=== PATIENT | male | born 1965 | race Caucasian/White ===

== ENCOUNTER 2025-06-15 10:00 | Inpatient (IN) | payer OTHER ==
[~2025-06-15] VITALS: Ht 183.5 cm; Wt 65.0 kg
[2025-06-15 11:11] LABS: PLATELET COUNT (AUTO) 288 K/uL (150-450); RED BLOOD CELL COUNT(AUTO) 4.27 MIL/uL (4.50-5.90); RED CELL DISTRIBUTION WIDTH 14.8 % (11.5-14.5); WHITE BLOOD COUNT (AUTO) 9.8 K/uL (4.5-11.0)
[2025-06-15 11:19] LABS: CALCIUM, TOTAL 9.3 mg/dL (8.8-10.5); CREATININE 0.75 mg/dL (0.60-1.30); GLOMERULAR FILTR. RATE CALC > 60 mL/min (>60); GLUCOSE,RANDOM 111 mg/dL (70-110); SODIUM SERUM 136 mmol/L (136-145); UREA NITROGEN, BLOOD 15 mg/dL (7-18)
[2025-06-15 11:22] LABS: ASPARTATE AMINOTRANSFERASE 43 U/L (15-37); TOTAL PROTEIN, SERUM 7.1 g/dL (6.4-8.2)
[2025-06-15] MEDS: ACETAMINOPHEN 1000 MG/ISO-OSM 100 ML IV ONE (12:41)
[2025-06-15] MEDS ORDERED: ACET-2247 PO (13:58)
[2025-06-15] MEDS ORDERED: SERT-158 PO (13:58)
[2025-06-15] MEDS ORDERED: DULO60CA73 PO (13:58)
[2025-06-15] MEDS ORDERED: PRED-549 PO (13:58)
[2025-06-15] MEDS ORDERED: ATOR10TA PO (13:58)
[2025-06-15] MEDS: LIDOCAINE 5% TRANSDERMAL PATCH TD SCH (15:45)
[2025-06-15] MEDS ORDERED: ONDANSETRON HCL 4 MG/2 ML VIAL IVP PRN (15:45)
[2025-06-15] MEDS: HEPARIN SODIUM,PORCINE 5,000 UNITS/ML VIAL SQ SCH (16:00)
[2025-06-15 17:18] VITALS: BP 153/82; PULSE 81; RESP 18; TEMP 98.4; O2SAT 100
[2025-06-15] MEDS: DEXTROSE 5%-LACTATED RINGERS 1,000 ML IV ONE (18:16)
[2025-06-15] MEDS: ACETAMINOPHEN 325 MG TABLET PO PRN (18:47)
[2025-06-15 20:20] VITALS: BP_SYST 102; BP_SYST 138; BP_DIAS 72; BP_DIAS 95; PULSE 92; PULSE 94; RESP 17; TEMP 97.5; TEMP 98.1; O2SAT 100; O2SAT 98
[2025-06-15] MEDS: DOCUSATE SODIUM 100 MG CAPSULE PO SCH (21:00)
[2025-06-15] MEDS: -LIDODERM PATCH NOTE- MISC SCH (21:22)
[2025-06-16 06:00] VITALS: BP 111/87; PULSE 76; RESP 18; TEMP 99.1; O2SAT 99
[2025-06-16 06:33] LABS: PLATELET COUNT (AUTO) 233 K/uL (150-450); RED BLOOD CELL COUNT(AUTO) 3.73 MIL/uL (4.50-5.90); RED CELL DISTRIBUTION WIDTH 14.8 % (11.5-14.5); WHITE BLOOD COUNT (AUTO) 6.5 K/uL (4.5-11.0)
[2025-06-16 06:53] LABS: CALCIUM, TOTAL 8.6 mg/dL (8.8-10.5); CREATININE 0.68 mg/dL (0.60-1.30); GLOMERULAR FILTR. RATE CALC > 60 mL/min (>60); GLUCOSE,RANDOM 112 mg/dL (70-110); SODIUM SERUM 135 mmol/L (136-145); UREA NITROGEN, BLOOD 11 mg/dL (7-18)
[2025-06-16 08:12] VITALS: BP 147/80; PULSE 94; RESP 18; TEMP 98.2; O2SAT 100
[2025-06-16] MEDS: DULoxetine HCL 60 MG CAPSULE PO SCH (09:23)
[2025-06-16] MEDS: SERTRALINE HCL 50 MG TABLET PO SCH (09:23)
[2025-06-16] MEDS: ATORVASTATIN CALCIUM 10 MG TABLET PO SCH (09:24)
[2025-06-16 19:43] VITALS: BP 138/89; PULSE 91; RESP 19; TEMP 99.1; O2SAT 100
[2025-06-17 04:18] VITALS: BP 141/89; PULSE 78; RESP 18; TEMP 99.1; O2SAT 99
[2025-06-17 08:00] VITALS: BP 151/85; PULSE 90; RESP 20; TEMP 99.7; O2SAT 98
[2025-06-17 15:43] VITALS: BP 141/80; PULSE 93; RESP 18; TEMP 98.8; O2SAT 100
[2025-06-17 20:00] VITALS: BP 140/79; PULSE 68; RESP 18; TEMP 98.7; O2SAT 98
[2025-06-18 04:00] VITALS: BP 154/76; PULSE 83; RESP 18; TEMP 97.9; O2SAT 100
[2025-06-18 08:36] VITALS: BP 133/92; PULSE 70; RESP 18; TEMP 98.6; O2SAT 100
== END 2025-06-18 12:58 | disposition home or self-care (01) | DRG 563 ==
LOC: EMS 10:07 → EDH 15:36 → 6N 17:15 → 6S 06-17 19:54
PROVIDERS: ADMIT Internal Medicine; ATTEND Internal Medicine
DX: S82.142A Displaced bicondylar fracture of left tibia, initial encounter for closed fracture (principal); C79.51 Secondary malignant neoplasm of bone; F33.0 Major depressive disorder, recurrent, mild; G62.9 Polyneuropathy, unspecified; C61 Malignant neoplasm of prostate; R74.01 Elevation of levels of liver transaminase levels; E80.6 Other disorders of bilirubin metabolism; S00.83XA Contusion of other part of head, initial encounter; W05.0XXA Fall from non-moving wheelchair, initial encounter; Y93.89 Activity, other specified; Y92.89 Other specified places as the place of occurrence of the external cause; Y99.8 Other external cause status; Z79.899 Other long term (current) drug therapy
CPT/HCPCS: 70450; 72125; 73700; 80048; 80053; 83735; 85025; 85610; 97116; 97162; 99285; J0131; J1644